=== PATIENT | female | born 1955 | race Caucasian/White ===

== ENCOUNTER 2025-08-13 06:33 | Day surgery (SDC) | payer MEDICARE, OTHER, SELFPAY | END 2025-08-13 13:29 | disposition home or self-care (01) | LOC: GI 06:33 | PROVIDERS: ATTENDING PHYSICIAN Surgery | DX: Z12.11 Encounter for screening for malignant neoplasm of colon (principal); K64.8 Other hemorrhoids; Q43.8 Other specified congenital malformations of intestine; D12.3 Benign neoplasm of transverse colon | CPT/HCPCS: 45380; 88305 ==